=== PATIENT | male | born 1950 | race Caucasian/White ===

== ENCOUNTER 2023-08-30 16:20 | Outpatient (OUT) | payer MEDICARE, MEDICAID, SELFPAY ==
--- NOTE | 2023-08-30 | XR_ITS ---
The [address] [address] Patient Name: ANTHONY PAGE MRN: [id number] date: 1950 Sex: M Assigned Patient Location: Current Patient Location: Accession/Order Number: [id number] Exam Date: 08/30/2023 09:48 Report Date: 08/30/2023 10:41 At the request of: PETER GONZALEZ Procedure: XR foot LT min 3V PROCEDURE: XR foot LT min 3V COMPARISON: None. HISTORY: LEFT FOOT PAIN FINDINGS: BONES:Persistent flexion of the toes limits evaluation. Permanent pattern of the bones suggests osteopenia. Lucency along the posterior calcaneus SOFT TISSUES:Suspected soft tissue wound posterior calcaneus EFFUSION:None visible. OTHER: Vascular calcifications XR/XR foot LT min 3V IMPRESSION: Posterior calcaneal lucency could represent early osteomyelitis Electronically authenticated by: DREW MELLO Date: 08/30/2023 10:41
== END 2023-08-30 16:21 | disposition home or self-care (01) ==
LOC: WC 16:20
PROVIDERS: PCP Family Medicine; Visit Provider Podiatrist Foot & Ankle Surgery
DX: M79.672 Pain in left foot (principal); E11.621 Type 2 diabetes mellitus with foot ulcer; L97.424 Non-pressure chronic ulcer of left heel and midfoot with necrosis of bone; L97.522 Non-pressure chronic ulcer of other part of left foot with fat layer exposed
CPT/HCPCS: 73630; A6213; G0463

== ENCOUNTER 2023-09-13 15:49 | Outpatient (OUT) | payer MEDICARE, MEDICAID, SELFPAY | END 2023-09-13 15:50 | disposition home or self-care (01) | LOC: WC 15:49 | PROVIDERS: PCP Family Medicine; Visit Provider Podiatrist Foot & Ankle Surgery | DX: E11.621 Type 2 diabetes mellitus with foot ulcer (principal); L97.424 Non-pressure chronic ulcer of left heel and midfoot with necrosis of bone; L97.522 Non-pressure chronic ulcer of other part of left foot with fat layer exposed | CPT/HCPCS: 11042; 11045; A6213 ==

== ENCOUNTER 2023-10-04 15:56 | Outpatient (OUT) | payer MEDICARE, MEDICAID, SELFPAY | END 2023-10-04 15:57 | disposition home or self-care (01) | LOC: WC 15:56 | PROVIDERS: PCP Family Medicine; Visit Provider Podiatrist Foot & Ankle Surgery | DX: E11.621 Type 2 diabetes mellitus with foot ulcer (principal); L97.424 Non-pressure chronic ulcer of left heel and midfoot with necrosis of bone; L97.522 Non-pressure chronic ulcer of other part of left foot with fat layer exposed | CPT/HCPCS: G0463 ==

== ENCOUNTER 2023-10-05 07:19 | Outpatient (OUT) | payer MEDICARE, MEDICAID, SELFPAY | END 2023-10-05 07:20 | disposition home or self-care (01) | LOC: PST 07:19 | PROVIDERS: PCP Family Medicine; Visit Provider Podiatrist Foot & Ankle Surgery | DX: Z01.818 Encounter for other preprocedural examination (principal); E11.69 Type 2 diabetes mellitus with other specified complication; M86.9 Osteomyelitis, unspecified ==

== ENCOUNTER 2023-10-13 07:11 | Day surgery (SDC) | payer MEDICARE, MEDICAID, SELFPAY ==
--- NOTE | 2023-10-13 07:48 | PC.NURSE ---
10/13/2023 (5403)- Patient arrives via wheelchair. Patient alert/oriented x 3. Patients skin color is jaundiced. Patient states that he was last dialyzed on Tuesday. Dr. Stevenson aware. New orders received. Dr. Stevenson talks with Dr. Donis. Surgery will be cancelled until patient is able to have a cardiac echo. Labs drawn. Damaris at [facility] updated on need for echo prior to rescheduling procedure. Patient and [facility] verbalize a understanding.
[2023-10-13 08:23] LABS: Alanine Aminotransferase 28 U/L (16-63); Albumin Globulin Ratio 0.6; Albumin Level 2.2 g/dL (3.4-5.0); Alkaline Phosphatase 91 U/L (46-116); Anion Gap 12.6; Aspartate Amino Transferase 18 U/L (15-37); BUN Creatinine Ratio 20.1; Bilirubin Total 0.4 mg/dL (0.2-1.0); Calcium 9.1 mg/dL (8.5-10.1); Carbon Dioxide 27.5 mmol/L (21.0-32.0); Chloride 101 mmol/L (98-107); Estimated GFR (African America 24 (>=60); Estimated GFR (Non-African Ame 20 (>=60); Globulin 3.8 g/dL; Glucose 134 mg/dL (74-106); Potassium 4.1 mmol/L (3.5-5.1); Sodium 137 mmol/L (136-145)
[2023-10-13 08:25] LABS: INR 1.16; Partial Thromboplastin Time 31.3 sec (22.3-36.2); Prothrombin Time 12.1 sec (9.0-11.6)
[2023-10-13 10:19] LABS: Alanine Aminotransferase 29 U/L (16-63); Albumin Globulin Ratio 0.6; Albumin Level 2.2 g/dL (3.4-5.0); Alkaline Phosphatase 93 U/L (46-116); Aspartate Amino Transferase 20 U/L (15-37); Bilirubin Direct 0.1 mg/dL (0.0-0.2); Bilirubin Total 0.3 mg/dL (0.2-1.0); Globulin 3.8 g/dL
== END 2023-10-13 08:00 | disposition home or self-care (01) ==
LOC: SURGOUT 07:12
PROVIDERS: Anesthesiology; PCP Family Medicine; Visit Provider Podiatrist Foot & Ankle Surgery
DX: E11.69 Type 2 diabetes mellitus with other specified complication (principal); Z53.8 Procedure and treatment not carried out for other reasons; M86.672 Other chronic osteomyelitis, left ankle and foot; I48.91 Unspecified atrial fibrillation; I50.9 Heart failure, unspecified
CPT/HCPCS: 28120; 36415; 80053; 80076; 82140; 85610; 85730

== ENCOUNTER 2023-10-27 09:09 | Day surgery (SDC) | payer MEDICARE, MEDICAID, SELFPAY ==
[2023-10-27 10:04] LABS: Glucometer 115 mg/dL (74-106)
[2023-10-27 10:20] VITALS: BP 125/63; PULSE 58; TEMP 35.7; O2SAT 100; BMI 32.9
--- NOTE | 2023-10-27 10:28 | PC.NURSE ---
Left foot has [address]; seeping from numerous areas and lower leg and foot with pitting 2-3+ edema; right foot has seeping area on heel and edematous as left lower extremity
[2023-10-27] MEDS: 0.9 % SODIUM CHLORIDE 1,000 ML 50 ML IV (10:32)
--- NOTE | 2023-10-27 10:39 | PC.NURSE ---
States he does urinate in urinal besides having dialysis twice weekly
[2023-10-27 11:58] LABS: Basophils Absolute Auto 0.1 10^3/uL (0.0-0.1); Basophils Percent Auto 0.6 % (0.2-2.0); Eosinophils Absolute Auto 0.7 10^3/uL (0.0-0.7); Eosinophils Percent Auto 5.9 % (0.9-7.0); Hematocrit 34.5 % (42.0-54.0); Hemoglobin 10.8 g/dL (14.0-18.0); Immature Granulocytes Abs Auto 0.08 10^3/uL (0.00-0.03); Immature Granulocytes Pct Auto 0.6 % (0.0-0.5); Lymphocytes Absolute Auto 0.7 10^3/uL (1.2-3.8); Lymphocytes Percent Auto 5.4 % (20.5-60.0); Mean Corpuscular HGB Conc 31.3 g/dL (29.9-35.2); Mean Corpuscular Volume 95.8 fL (80.0-94.0); Mean Platelet Volume 9.6 fL (9.5-13.5); Monocytes Absolute Auto 1.1 10^3/uL (0.3-0.8); Monocytes Percent Auto 8.7 % (1.7-12.0); Neutrophils Absolute Auto 9.9 10^3/uL (1.4-6.5); Neutrophils Percent Auto 78.8 % (43.0-75.0); Platelet Count 289 10^3/uL (150-450); Red Cell Distribution Width 14.4 % (11.0-15.0); White Blood Count 12.6 10^3/uL (4.0-11.0)
[2023-10-27 12:49] LABS: Anion Gap 14.1; BUN Creatinine Ratio 24.8; Calcium 9.3 mg/dL (8.5-10.1); Carbon Dioxide 26.5 mmol/L (21.0-32.0); Chloride 100 mmol/L (98-107); Estimated GFR (African America 24 (>=60); Estimated GFR (Non-African Ame 20 (>=60); Glucose 121 mg/dL (74-106); Potassium 3.6 mmol/L (3.5-5.1); Sodium 137 mmol/L (136-145)
[2023-10-27] MEDS: CEFAZOLIN SODIUM/DEXTROSE,ISO 2 GM/50 ML PIGGYBACK IV (12:59)
[2023-10-27] MEDS: VANCOMYCIN HCL 1,000 MG VIAL 1000 MG TOPICAL (14:29)
[2023-10-27] MEDS: GENTAMICIN SULFATE 1 GM POWDER TOPICAL (14:29)
[2023-10-27] MEDS: [UNRECOGNIZED DRUG - SUPPLY] 1 EACH TP (14:44)
--- NOTE | 2023-10-27 15:07 | P.ORON_ITS ---
Brief Operative Note Date of procedure: 10/27/23 Pre-op diagnosis general: Left heel ulcer & fifth toe ulcer with osteomyelitis Post-op diagnosis: same as pre-op Procedure: Procedure performed: Left partial calcanectomy with application of allogenic skin substitute, partial fifth ray amputation Indications for procedure: Patient is a 73-year-old male with type 2 diabetes, end-stage renal failure on dialysis and history of nonhealing ulcerations to his left heel and fifth toe. His ulceration to his heel has been present for over a year while on his fifth toe ulcer has been present for at least 2 months. He was referred to us for second opinion and further management of his nonhealing ulcerations. He did undergo left angiogram on 08/25/[address] scan obtained showed cortical erosive changes to the calcaneal tuberosity and the wound did communicate down to bone. In the office the fifth toe ulcer was full-thickness and contracted in adductovarus consistent with a hammertoe but there is no obvious bony involvement at that time. In the preoperative holding area I examined his wounds and there was no overt signs of acute infection of the heel ulcer but there was bone exposure. The fifth toe wound had obvious bone exposure and the visible bone appeared to be estrada and chronically infected. The fifth toe was very swollen and mildly erythematous. We initially had discussed with him partial calcanectomy and possible lodging skin substitute of the heel ulcer and an arthroplasty to help heal the fifth toe wound as well as the contracture in August. Surgery has been delayed due to medical clearance and arranging time with this facility that would not greatly affect dialysis. Today I reviewed the original plan but suggested the planned fifth toe arthroplasty may not be the best option. After discussing with him the findings today we discussed that advantages and disadvantages of amputation of the fifth toe versus partial fifth ray. I related that the chronic infection will be difficult to get rid of unless it is excised and I explained that this type of amputation would not greatly affect his function. All questions were answered to the patient's satisfaction and he agreed with changing the plan to fifth toe versus partial fifth ray amputation as well as the planned procedure regarding his heel wound involving partial calcanectomy and possible allogenic skin substitute. Intraoperative findings: Preoperative wound on the posterior lateral calcaneus measured 7.1 x 5.2 cm with 2 cm exposed calcaneus. The surrounding wound base was fibrogranular. All exposed calcaneus was excised and any further questionable bone of the heel was also excised until only healthy bleeding bone abnormal color remained. There is no purulence or evidence of acute infection. Wound edges did bleed well. It was also noted at the superior aspect of the wound the Achilles tendon was involved and appeared to be nonviable therefore all questionable tendon and soft tissue was also excised. The wound on the dorsal lateral fifth toe measured 1.5 x 0.5 cm with exposed proximal phalanx that was discolored and consistent with chronic osteomyelitis. Upon dissection of the fifth toe it was noted that the proximal phalanx was nearly entirely necrotic and chronically infected. The bone of his fifth metatarsal was soft and cartilage of the fifth metatarsal phalangeal joint was severely degenerated. Following the amputation the residual fifth metatarsal bled appropriately and had normal color again was soft. Wound edges were somewhat sluggish to bleed on both the fifth toe. Procedure in detail: Patient was identified preoperative holding by myself which time correct side and site were marked and consent was obtained. I reviewed the revised plan with the patient and he was in full agreement. Preoperative antibiotics were started and patient was brought back the operating theater placed on table in supine position. General anesthesia was administered. No tourniquet was applied. The left lower extremities prepped and draped in usual sterile fashion and formal timeout was performed. With attention to the fifth toe the wound was excised and further inspection revealed compromised bone of the proximal phalanx of the fifth toe extending into the joint therefore dissection was taken proximally exposing the distal aspect of the fifth metatarsal. A fishmouth incision was then placed around the fifth toe allowing it to be disarticulated. Further inspection of the fifth metatarsal revealed soft bone and severely degenerated cartilage of the fifth metatarsal head. Due to concern of chronic infection in this area and to aid in wound closure the head of the fifth metatarsal was resected with an oscillating saw. Specimens were sent to microbiology/pathology and wound edges were slightly sluggish to bleed but ultimately healthy bleeding tissue was all that remained. The surgical site was irrigated with copious amounts of sterile saline on pulse lavage. 1 g of vancomycin powder was placed into the surgical site and the surgical site was closed in a single layer with skin suture. With attention to the heel ulcer the wound edges and base was excised until healthy bleeding tissue. The Achilles tendon was exposed and appeared nonviable therefore the tendon was debrided until only healthy tissue remained. All prominent and exposed calcaneus was then excised using a sagittal saw then further debridement with the Yuri and curettes was performed until only healthy bleeding calcaneus remained this required removal of a significant portion of the posterior lateral tuberosity of the calcaneus. There is no signs of acute infection on this wound therefore decision was made to place an allogenic skin substitute. Surgical site was irrigated with copious saline using pulse lavage and a TheraGenesis allogenic skin substitute was placed over the wound and held in place with jerardo. Then a bulky dry sterile dressing which included Adaptic over the incision over the fifth ray and over the allogenic skin substitute was applied followed by a posterior splint which was well-padded especially over the heel. Patient tolerated the procedure and anesthesia well was transported to the recovery room with vital signs stable. Postoperative plan: Plan to discharge the patient back to his facility. Strict offloading of the heel wound -will arrange for a wound VAC to be applied at his facility Patient will follow-up in the wound center next week Implants: TheraGenesis allogenic skin substitute 4x6cm Anesthesia: General-LMA Surgeon: Bo Donis [employer] Operator: Huber Back Estimated blood loss (mL): 150 Pathology: other (soft tissue & calcaneus from heel wound; 5th toe and 5th metatarsal head) Condition: stable Disposition: PACU
[2023-10-27 15:09] VITALS: BP 106/58; PULSE 68; TEMP 36.1; O2SAT 98
[2023-10-27 15:17] LABS: Glucometer 128 mg/dL (74-106)
--- NOTE | 2023-10-27 15:20 | XR_ITS ---
The [address] [address] Patient Name: ANTHONY PAGE MRN: [id number] date: 1950 Sex: M Assigned Patient Location: [facility] Current Patient Location: Accession/Order Number: [id number] Exam Date: 10/27/2023 15:35 Report Date: 10/29/2023 06:30 At the request of: MELISSA MAHONEY Procedure: XR foot LT min 3V PROCEDURE: XR foot LT min 3V HISTORY: pstop xr pacu COMPARISON: XR foot left 08/30/2023 FINDINGS: BONES:Amputation of 5th toe at level of mid 5th metatarsal. Resection of posterior margin of calcaneus. SOFT TISSUES:Soft tissue swelling posterior and dorsal to the foot. Images were obtained to cast material. EFFUSION:None visible. OTHER: Atherosclerotic disease. XR/XR foot LT min 3V IMPRESSION: 1. Surgical changes as detailed above. Electronically authenticated by: FARIDEH RODRIGUEZ Date: 10/29/2023 06:30
[2023-10-27 15:39] VITALS: BP 103/51; PULSE 74; O2SAT 97
== END 2023-10-27 16:09 | disposition home or self-care (01) ==
PROVIDERS: Anesthesiology; PCP Family Medicine; Visit Provider Podiatrist Foot & Ankle Surgery
PROC: (CPT 15275; principal; 2023-10-27 10:30)
DX: L89.624 Pressure ulcer of left heel, stage 4 (principal); E11.69 Type 2 diabetes mellitus with other specified complication; M86.672 Other chronic osteomyelitis, left ankle and foot; E11.22 Type 2 diabetes mellitus with diabetic chronic kidney disease; N18.6 End stage renal disease; Z99.2 Dependence on renal dialysis; M86.172 Other acute osteomyelitis, left ankle and foot; Z79.899 Other long term (current) drug therapy; I12.0 Hypertensive chronic kidney disease with stage 5 chronic kidney disease or end stage renal disease; E78.5 Hyperlipidemia, unspecified; I48.91 Unspecified atrial fibrillation; I08.1 Rheumatic disorders of both mitral and tricuspid valves
CPT/HCPCS: 15275; 28120; 28810; 36415; 73630; 80048; 82948; 85025; 87070; 87102; 87116; 87150; 87186; 87205; 87206; 88305; 88311; 99999; A2008; J2704; J3370

== ENCOUNTER 2023-11-10 15:38 | Outpatient (OUT) | payer MEDICARE, MEDICAID, SELFPAY | END 2023-11-10 15:39 | disposition home or self-care (01) | LOC: WC 15:38 | PROVIDERS: PCP Family Medicine; Visit Provider Physician Assistant | DX: E11.621 Type 2 diabetes mellitus with foot ulcer (principal); L97.424 Non-pressure chronic ulcer of left heel and midfoot with necrosis of bone; T87.89 Other complications of amputation stump | CPT/HCPCS: 29515; G0463 ==

== ENCOUNTER 2023-11-29 15:38 | Outpatient (OUT) | payer MEDICARE, MEDICAID, SELFPAY | END 2023-11-29 15:39 | disposition home or self-care (01) | LOC: WC 15:38 | PROVIDERS: PCP Family Medicine; Visit Provider Podiatrist Foot & Ankle Surgery | DX: E11.621 Type 2 diabetes mellitus with foot ulcer (principal); L97.424 Non-pressure chronic ulcer of left heel and midfoot with necrosis of bone; T87.89 Other complications of amputation stump | CPT/HCPCS: G0463 ==

== ENCOUNTER 2023-12-20 13:32 | Outpatient (OUT) | payer MEDICARE, MEDICAID, SELFPAY ==
--- NOTE | 2023-12-20 | XR_ITS ---
The [address] [address] Patient Name: ANTHONY PAGE MRN: [id number] date: 1950 Sex: M Assigned Patient Location: Current Patient Location: Accession/Order Number: [id number] Exam Date: 12/20/2023 13:32 Report Date: 12/21/2023 08:22 At the request of: CHOCO COLÓN Procedure: XR ankle LT min 3V PROCEDURE: XR ankle LT min 3V, XR foot LT min 3V COMPARISON: 10/27/2023 HISTORY: LEFT ANKLE PAIN FINDINGS: BONES:Contour deformity of the posterior calcaneus suggesting prior resection. There is lytic appearance of the posterior calcaneus. Stable amputation mid diaphysis of the fifth metatarsal. Persistent flexion of the toes limits their evaluation. Moderate degenerative changes with joint space narrowing and marginal osteophyte formation SOFT TISSUES:Moderate diffuse soft tissue swelling. Extensive vascular calcifications EFFUSION:None visible. OTHER: Negative. XR/XR ankle LT min 3V IMPRESSION: Permeative/lytic pattern of the posterior calcaneus, this could represent postsurgical changes over osteomyelitis should be considered Electronically authenticated by: DREW MELLO Date: 12/21/2023 08:22
--- NOTE | 2023-12-20 | XR_ITS ---
The [address] [address] Patient Name: ANTHONY PAGE MRN: [id number] date: 1950 Sex: M Assigned Patient Location: Current Patient Location: Accession/Order Number: [id number] Exam Date: 12/20/2023 13:32 Report Date: 12/21/2023 08:22 At the request of: CHOCO CLOÓN Procedure: XR foot LT min 3V PROCEDURE: XR ankle LT min 3V, XR foot LT min 3V COMPARISON: 10/27/2023 HISTORY: LEFT ANKLE PAIN FINDINGS: BONES:Contour deformity of the posterior calcaneus suggesting prior resection. There is lytic appearance of the posterior calcaneus. Stable amputation mid diaphysis of the fifth metatarsal. Persistent flexion of the toes limits their evaluation. Moderate degenerative changes with joint space narrowing and marginal osteophyte formation SOFT TISSUES:Moderate diffuse soft tissue swelling. Extensive vascular calcifications EFFUSION:None visible. OTHER: Negative. XR/XR foot LT min 3V IMPRESSION: Permeative/lytic pattern of the posterior calcaneus, this could represent postsurgical changes over osteomyelitis should be considered Electronically authenticated by: DREW MELLO Date: 12/21/2023 08:22
== END 2023-12-20 13:33 | disposition home or self-care (01) ==
LOC: WC 13:32
PROVIDERS: PCP Family Medicine; Visit Provider Physician Assistant
DX: M79.672 Pain in left foot (principal); M25.572 Pain in left ankle and joints of left foot; E11.621 Type 2 diabetes mellitus with foot ulcer; L97.424 Non-pressure chronic ulcer of left heel and midfoot with necrosis of bone; E11.622 Type 2 diabetes mellitus with other skin ulcer; L97.328 Non-pressure chronic ulcer of left ankle with other specified severity
CPT/HCPCS: 73610; 73630; G0463